=== PATIENT | female | born 1985 | race African-American/Black ===

== ENCOUNTER → 2020-11-24 | Outpatient (CLI) | payer OTHER | LOC: LAB 09:34 | PROVIDERS: ATTEND Internal Medicine | DX: Z20.822 Contact with and (suspected) exposure to COVID-19 (principal) ==

== ENCOUNTER 2021-02-28 20:08 | Inpatient (IN) | payer OTHER ==
[~2021-02-28] VITALS: Ht 154.9 cm; Wt 73.5 kg
[2021-02-28 20:13] VITALS: BP 119/82
[2021-02-28 22:22] LABS: ABSOLUTE NEUTROPHILS 13.6 thou/uL (1.4-8.2); BASOPHILS 0.4 % (0.0-2.0); HEMATOCRIT 42.7 % (37.0-47.0); HEMOGLOBIN 14.1 gm/dL (12.0-15.0); LYMPHOCYTES 8.4 % (24.0-44.0); MCH 30.1 pg (26.0-34.0); MCHC 32.9 g/dL (28.0-37.0); MCV 91.3 fL (80.0-100.0); MONOCYTES 1.8 % (1.0-8.0); PLATELET COUNT 434 thou/uL (150-400); POLYS 89.4 % (36.0-66.0); RBC 4.68 mil/uL (4.20-5.00); RDW 13.2 % (10.5-14.5); WBC 15.2 thou/uL (4.0-11.0)
[2021-02-28 22:33] LABS: ANION GAP 21 mmol/L (7-16); BUN 11 mg/dL (7-18); CALCIUM 10.1 mg/dL (8.5-10.1); CHLORIDE 105 mmol/L (98-107); CO2 19 mmol/L (21-32); CREATININE 0.8 mg/dL (0.6-1.0); GLUCOSE 104 mg/dL (74-106); POTASSIUM 3.6 mmol/L (3.5-5.1); SODIUM 145 mmol/L (136-145)
[2021-02-28 22:43] LABS: ALBUMIN 4.2 g/dL (3.4-5.0); SGOT 15 U/L (15-37); SGPT 20 U/L (30-65); TOTAL BILIRUBIN 0.5 mg/dL (0.2-1.0); TOTAL PROTEIN 8.9 g/dL (6.4-8.2); TROPONIN-I <0.06 ng/mL (<0.06)
[2021-03-01 01:34] VITALS: BP 137/90
--- NOTE | 2021-03-01 01:46 | NUR ---
Called to give report but was told CHUCK Khan was busy assissting other pt
[2021-03-01 01:55] VITALS: BP 146/75
[2021-03-01 02:08] VITALS: BP 155/74
--- NOTE | 2021-03-01 03:19 | NUR ---
6758: transport here to complete her VQ scan. taken down
[2021-03-01] MEDS ORDERED: CARVEDILOL12.5 MG PO (03:26)
[2021-03-01] MEDS ORDERED: CYMBALTA60 MG (03:38)
[2021-03-01 04:54] VITALS: BP 135/83
[2021-03-01 05:00] LABS: CHOLESTEROL 221 mg/dL (<200); HDL CHOLESTEROL 47 mg/dL (>40); LDL CHOLESTEROL 141 mg/dL (<100); TC:HDL 4.7 Ratio (Not establshd); TRIGLYCERIDE 168 mg/dL (<150); TROPONIN-I <0.06 ng/mL (<0.06); VLDL 34 mg/dL (<40)
[2021-03-01 05:02] LABS: SERUM ASSESSMENT Clear
[2021-03-01 07:48] VITALS: BP 140/90
[2021-03-01 11:37] VITALS: BP 140/90
[2021-03-02 02:05] LABS: GLYCOHEMOGLOBIN (HGB A1C) 5.8 % (4.8-5.6)
--- NOTE | 2021-03-02 07:22 | EKG ---
[address] [address] ELECTROCARDIOGRAM REPORT Name: CELESTINE KILGORE Room #: 358-P [facility] IN .R.#: [id number] Admission: 03/01/21 Attend Phys: Payam Florez MD Discharge: 03/01/21 Date of : 85 Report #: [id number] [facility] ED Test Date: 2021-02-28 Test Time: 21:15:03 Pat Name: CELESTINE KILGORE Department: Room: 358 Gender: F Adobe Developer: ROBBY : 1985 Requested By: Jc Moreira Order Number: [id number] MD: Trevor Paula Measurements Intervals [place] Rate: 80 P: 41 NE: 169 QRS: -11 QRSD: 97 T: 37 QT: 416 QTc: 480 Interpretive Statements Sinus rhythm Nonspecific T abnrm, anterolateral leads Borderline prolonged QT interval No previous ECG available for comparison Electronically Signed On 03-02-2021 7:21:51 CDT by Trevor Paula [email or web address] <ELECTRONICALLY SIGNED> By: Trevor Paula MD, [facility] 03/02/21720 14 14 Trevor Paula MD, FACC /EPI
[2021-03-02] MEDS ORDERED: HALOPERIDOL 2 MG2 MG PO (18:07)
== END 2021-03-01 12:16 | disposition home or self-care (01) | DRG 392 ==
LOC: ER 20:08 → EROBS 03-01 01:15 → 3W 03-01 01:15
PROVIDERS: Emergency Medicine; Nurse Practitioner Family; ADMIT Hospitalist; ATTEND Hospitalist
DX: K52.9 Noninfective gastroenteritis and colitis, unspecified (principal); K50.90 Crohn's disease, unspecified, without complications; I42.9 Cardiomyopathy, unspecified; F32.9 Major depressive disorder, single episode, unspecified; F41.9 Anxiety disorder, unspecified; R07.9 Chest pain, unspecified; Z79.899 Other long term (current) drug therapy
CPT/HCPCS: 10879

== ENCOUNTER 2021-03-02 14:16 | Emergency (ER) | payer OTHER ==
[~2021-03-02] VITALS: Ht 154.9 cm; Wt 73.5 kg
[~2021-03-02 14:16] MED LIST: CARVEDILOL12.5 MG PO; CYMBALTA60 MG
[2021-03-02 15:31] LABS: ABSOLUTE NEUTROPHILS 8.4 thou/uL (1.4-8.2); BASOPHILS 0.5 % (0.0-2.0); HEMATOCRIT 40.3 % (37.0-47.0); HEMOGLOBIN 13.2 gm/dL (12.0-15.0); LYMPHOCYTES 19.4 % (24.0-44.0); MCH 30.3 pg (26.0-34.0); MCHC 32.9 g/dL (28.0-37.0); MCV 92.1 fL (80.0-100.0); MONOCYTES 2.4 % (1.0-8.0); PLATELET COUNT 485 thou/uL (150-400); POLYS 77.7 % (36.0-66.0); RBC 4.37 mil/uL (4.20-5.00); RDW 13.6 % (10.5-14.5); WBC 10.8 thou/uL (4.0-11.0)
[2021-03-02 16:02] LABS: CALCIUM 10.1 mg/dL (8.5-10.1); CREATININE 0.6 mg/dL (0.6-1.0); POTASSIUM 4.1 mmol/L (3.5-5.1)
[2021-03-02 17:42] LABS: AMP/METHAMP Negative (Negative); BARBITURATES Negative (Negative); BENZODIAZEPINES Negative (Negative); COCAINE Negative (Negative); METHADONE Negative (Negative); OPIATES POSITIVE (Negative); PCP Negative (Negative)
[2021-03-02] MEDS ORDERED: HALOPERIDOL 2 MG2 MG PO (18:07)
[2021-03-02 18:29] VITALS: BP 117/78
--- NOTE | 2021-03-03 07:17 | EKG ---
[place] [address] [address] [place] 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1985 Requested By: Cliff Alvarez Order Number: [id number] MD: Tervor Paula Measurements Intervals [place] Rate: 94 P: -5 [place]: 157 QRS: -2 QRSD: 89 T: -47 QT: 404 QTc: 506 Interpretive Statements Sinus rhythm Nonspecific T abnormalities, diffuse leads Prolonged QT interval Compared to ECG 02/28/2021 21:15:03 T-wave abnormality now present Electronically Signed On 03-03-2021 7:17:49 CDT by Trevor Paula [email or web address] <ELECTRONICALLY SIGNED> By: Trevor Paula MD, [facility] 03/03/21 0717 1430 1430 Trevor Paula MD, FACC /EPI
== END 2021-03-02 18:29 | disposition home or self-care (01) ==
LOC: ER 14:16
PROVIDERS: Emergency Medicine
DX: R11.2 Nausea with vomiting, unspecified (principal); R19.7 Diarrhea, unspecified; R07.89 Other chest pain; Z79.899 Other long term (current) drug therapy

== ENCOUNTER 2021-03-03 12:06 | Inpatient (IN) | payer OTHER ==
[~2021-03-03] VITALS: Ht 154.9 cm; Wt 73.5 kg
[2021-03-03] VITALS (12 sets, daily range): BP systolic 99–157; BP diastolic 55–105
[~2021-03-03 12:06] MED LIST changes: +HALOPERIDOL 2 MG2 MG PO
[2021-03-03 15:41] LABS: ABSOLUTE NEUTROPHILS 7.5 thou/uL (1.4-8.2); BASOPHILS 0.9 % (0.0-2.0); HEMOGLOBIN 13.4 gm/dL (12.0-15.0); LYMPHOCYTES 25.6 % (24.0-44.0); MCHC 34.5 g/dL (28.0-37.0); MCV 89.9 fL (80.0-100.0); MONOCYTES 5.8 % (1.0-8.0); PLATELET COUNT 468 thou/uL (150-400); POLYS 67.7 % (36.0-66.0); RBC 4.33 mil/uL (4.20-5.00); RDW 13.4 % (10.5-14.5); WBC 11.2 thou/uL (4.0-11.0)
[2021-03-03 15:52] LABS: ALBUMIN 4.1 g/dL (3.4-5.0); CREATININE 0.8 mg/dL (0.6-1.0); TOTAL BILIRUBIN 0.4 mg/dL (0.2-1.0); TOTAL PROTEIN 8.3 g/dL (6.4-8.2)
[2021-03-03 15:57] LABS: POTASSIUM 2.9 mmol/L (3.5-5.1)
[2021-03-03 16:28] LABS: URINE BILIRUBIN 2+ (Negative); URINE BLOOD 2+ (Negative); URINE CLARITY CLEAR; URINE COLOR YELLOW; URINE GLUCOSE-RANDOM* NEGATIVE (Negative); URINE KETONES 2+ (Negative); URINE LEUKOCYTES-REFLEX NEGATIVE (Negative); URINE NITRITE-REFLEX NEGATIVE (Negative); URINE PROTEIN (DIPSTICK) 2+ (Negative); URINE SPECIFIC GRAVITY >= 1.030 (1.005-1.035); URINE UROBILINOGEN 0.2 E.U./dl (0.2-1.0)
[2021-03-03 16:46] LABS: SQUAMOUS 0-3 Few /LPF (0-3); URINE RBC 1-2 Rare /HPF (NONE SEEN); URINE WBC-REFLEX None Seen /HPF (0-5)
[2021-03-03 16:47] LABS: BACTERIA-REFLEX None Seen /HPF (None Seen); CRYSTALS None Seen /LPF (None Seen); ICTOTEST (BILI CONFIRMATORY) Positive (Negative)
--- NOTE | 2021-03-03 18:51 | NUR ---
VAT CONSULTED IN ER FOR A PIV AFTER PT HAD MULTIPLE IV AND LAB ATTEMPTS OVER THE PAST 3 DAYS AND HAS POOR VENOUS STRUCTURES. PLACED A 20 2.5 INCH PIV IN HER LUABASILIC WITH US AND AFTER A LITER OF IVF IT INFILTRATED. CONSULTED FOR A PIV FOR 50MEQ OF K+, CALLED DR GOULD FOR AN ORDER FOR A PICC DUE TO HER VENOUS ISSUES. ATTEMPT X2 IN HER LUABRACHIAL NEAR THE AXILLARY NO OTHER VESSELS WERE VIABLE. TRIMMED AT 40CM AND INSERTED TO 37CM WITH A BRISK BLOOD RETURN. PEAKED PWAVE CAPTURED WITH ECG AND LINE RELEASED TO RN FOR USE.
--- NOTE | 2021-03-03 19:26 | NUR ---
1822 GAVE PT REGLAN IV PER ORDERED. 1844 PT COMES OUT, STATED "PT LOOKS WEIRD AND SOMETHING IS WRONG" WENT INTO ASSESS PT IMMEDIATELY, PT WAS STIFF, UNABLE TO RESPONSE. RAPID CALLED IMMEDIATELY. OXYGEN STARTED ON PT, VITALS TAKEN AND NORMAL. SUCTION IN PLACE. DR. BRYANNA SMITH, ORDER FOR 50 BENADRLY. LABS TAKEN. PT STARTED TALKING AGAIN AFTER BENADRYL IV GIVEN, IV SOLUMEDEROL GIVEN PER ORDER. PT TX TO ICU, REPORT GIVEN TO CHUCK WANG
--- NOTE | 2021-03-03 19:34 | NUR ---
ADMISSION NOTE: 1745 PT ALERT AND ORIENTED X4, DENIES ANY PAIN,NAUSEA AND VOMITTING. FILM DEVELOPER PLACED, SR. ON ROOM AIR. ADMISSION AND ASSESSMENT COMPLETED. PT SKIN INTACT, UPAD RUSTY TO BATHROOM. IV INFILTRATED, IV TEAM CALLED STATED PT NEEDS PICC LINE ACCESS DUE TO HARD STICK AND IV POTASSIUM ORDER. DR. GOULD GAVE TELEPHONE ORDER FOR PICC LINE PLACEMENT.
[2021-03-04] VITALS (32 sets, daily range): BP systolic 102–129; BP diastolic 60–92
[2021-03-04 05:27] LABS: ABSOLUTE NEUTROPHILS 5.3 thou/uL (1.4-8.2); BASOPHILS 0.1 % (0.0-2.0); HEMATOCRIT 35.9 % (37.0-47.0); HEMOGLOBIN 12.1 gm/dL (12.0-15.0); MCH 30.5 pg (26.0-34.0); MCHC 33.6 g/dL (28.0-37.0); MCV 90.7 fL (80.0-100.0); MONOCYTES 0.8 % (1.0-8.0); PLATELET COUNT 409 thou/uL (150-400); POLYS 79.1 % (36.0-66.0); RBC 3.96 mil/uL (4.20-5.00); RDW 13.2 % (10.5-14.5); WBC 6.7 thou/uL (4.0-11.0)
[2021-03-04 05:59] LABS: CALCIUM 8.4 mg/dL (8.5-10.1); CREATININE 0.5 mg/dL (0.6-1.0); MAGNESIUM 1.9 mg/dL (1.8-2.4)
--- NOTE | 2021-03-04 07:09 | EKG ---
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 : 1985 Requested By: David Olmstead Order Number: [id number] MD: Trevor Paula Measurements Intervals [place] Rate: 146 P: 60 PA: 142 QRS: -6 QRSD: 78 T: 90 QT: 295 QTc: 460 Interpretive Statements Sinus tachycardia Paired ventricular premature complexes Aberrant conduction of SV complex(es) Borderline repolarization abnormality Baseline wander in lead(s) II,III,aVR,aVL,aVF,V1,V3,V4,V6 Compared to ECG 03/02/2021 14:30:29 Ventricular premature complex(es) now present Aberrant conduction of supraventricular beat(s) now present Sinus rhythm no longer present Electronically Signed On 03-04-2021 7:09:06 CDT by Trevor Paula [email or web address] <ELECTRONICALLY SIGNED> By: Trevor Paula MD, [facility] 03/04/21 0709 00 00 Trevor Paula MD, [facility] /EPI
--- NOTE | 2021-03-04 08:57 | NUR ---
ASSUMMED CARE OF THIS PATIENT FROM JUWAN WOODS AT 0700. PATIENT WAS INITIALLY SLEEPING. AROUSES EASILY, STATES THAT THROAT IS SORE AND STILL NAUSEATED WITH ABD PAIN. PAIN AND NAUSEA ISSUES ADDRESSED WITH MEDICATION. TAKING CLEAR LIQUID DIET WITHOUT EMESIS. WILL CONTINUE TO MONITOR.
--- NOTE | 2021-03-04 11:38 | NUR ---
Chart reviewed and case discussed with the care team. Pt is being evaluated by GI/pulm. 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 She was indep with gait and adl's prior to admission and lives at home with her spouse. No cm interventions indicated at this time. Cm available should dc needs arise.
--- NOTE | 2021-03-04 12:00 | NUR ---
Chart review, discussed during los and am rounds. Cm visited with her, and her spouse at bedside. She is A & O x 4, pleasant and able to make her needs know. Possible will be moved out of ICU today. 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 Independent prior to the hospital. No dme, hh or rehab in the past. No anticipated needs at dc. Will cont. following as needed for dc needs.
--- NOTE | 2021-03-04 15:07 | NUR ---
BEDSIDE ULTASOUND DONE AT 1300. PATIENT PLACED ON A HEART HEALTHY DIET AND TOLERATING DIET WITHOUT NAUSEA OR EMESIS. VISITING WITH FAMILY AND WATCHING TV. NO RESP DISTRESS NOTED.
--- NOTE | 2021-03-04 17:26 | NUR ---
1700 ATTEMPTED TO CALL REPORT TO THE NURSE ON 4W.
--- NOTE | 2021-03-04 18:00 | NUR ---
PATIENT TRANSFERRED TO 4W ROOM 455 VIA W/C WITH BELONGINGS. REPORT GIVEN TO FLOOR NURSE.
--- NOTE | 2021-03-05 06:27 | NUR ---
PAIN CONTROLLED THIS SHIFT. PATIENT HAD A SHOWER. PATIENT IS UP AT RUSTY. NO NAUSEA/VOMITING OR DIARRHEA. PATIENT IN BED ASLEEP AT THIS TIME BREATHING REGULAR AND UNLABOURED.
[2021-03-05 07:31] VITALS: BP 109/65
[2021-03-05 08:49] LABS: HEMOGLOBIN 11.7 gm/dL (12.0-15.0); MCH 30.3 pg (26.0-34.0); MCHC 33.5 g/dL (28.0-37.0); MCV 90.5 fL (80.0-100.0); RBC 3.86 mil/uL (4.20-5.00); RDW 13.2 % (10.5-14.5); WBC 14.1 thou/uL (4.0-11.0)
[2021-03-05] MEDS ORDERED: PROTONIX40 M2 PO (08:57)
[2021-03-05 09:06] LABS: CALCIUM 8.9 mg/dL (8.5-10.1); CREATININE 0.9 mg/dL (0.6-1.0); POTASSIUM 3.8 mmol/L (3.5-5.1)
[2021-03-05 09:50] VITALS: BP 109/65
--- NOTE | 2021-03-05 10:28 | NUR ---
Assumed pt care at 7am.Pt in bed sleeping but woke up around 8am.Assessment completed.vss. Sr per rn cardiac rehab.Received call from [employer] that pt will be steel pickler for gallbladder test.Pt informed but refused test. Stated that she can't lie down flat for 2hours and that she just wanted to dc home.Dr Olmstead notified. He rounded on pt and dc order noted.Dc summary compile and reviewed with pt.Picc line dc'd prior to dc home at 1020 ambulatory accompanied by battery vent plug inserter.
[2021-03-05 10:37] LABS: BE(vivo) -1.9 mmol/L (-2 to +3); HCO3 23.3 mmol/L (22.0-26.0); PCO2 41.6 mmHg (35.0-45.0); PO2 24.6 mmHg (80.0-100.0); pH 7.367 (7.360-7.450); sO2 42.4 % (92.0-98.0)
== END 2021-03-05 10:00 | disposition home or self-care (01) | DRG 916 ==
LOC: ER 12:06 → ICU 17:22 → EROBS 17:22 → 3W 17:23 → ICU 19:59 → 4W 03-04 18:08
PROVIDERS: Emergency Medicine; Nurse Practitioner; ADMIT Hospitalist; ATTEND Hospitalist
DX: T88.6XXA Anaphylactic reaction due to adverse effect of correct drug or medicament properly administered, initial encounter (principal); K50.90 Crohn's disease, unspecified, without complications; K81.9 Cholecystitis, unspecified; K27.9 Peptic ulcer, site unspecified, unspecified as acute or chronic, without hemorrhage or perforation; F32.9 Major depressive disorder, single episode, unspecified; F41.9 Anxiety disorder, unspecified; E87.5 Hyperkalemia; F98.8 Other specified behavioral and emotional disorders with onset usually occurring in childhood and adolescence; B33.24 Viral cardiomyopathy; E87.6 Hypokalemia; G89.29 Other chronic pain; R10.9 Unspecified abdominal pain; T78.3XXA Angioneurotic edema, initial encounter; K21.9 Gastro-esophageal reflux disease without esophagitis; T45.0X5A Adverse effect of antiallergic and antiemetic drugs, initial encounter; Z80.0 Family history of malignant neoplasm of digestive organs; Y92.89 Other specified places as the place of occurrence of the external cause
CPT/HCPCS: 10045; 10047; 10078; 27000